=== PATIENT | male | born 1985 | race Caucasian/White ===

== ENCOUNTER 2018-06-21 12:06 | Emergency (ER) | payer MEDICARE, MEDICAID ==
[~2018-06-21] VITALS: Ht 172.7 cm; Wt 72.0 kg
[2018-06-21] MEDS ORDERED: ONDANSETRON HCL 4 MG/2 ML VIAL IVP ONE (12:45)
[2018-06-21] MEDS ORDERED: SODIUM CHLORIDE 0.9% 1,000 ML IV ONE (12:45)
[2018-06-21] MEDS ORDERED: HydrOXYzine HCL 50 MG TABLET PO ONE (13:00)
[2018-06-21 13:50] VITALS: BP 129/78
== END 2018-06-21 14:00 | disposition home or self-care (01) ==
LOC: EMS 12:08
DX: F11.188 Opioid abuse with other opioid-induced disorder (principal); R11.10 Vomiting, unspecified; F17.210 Nicotine dependence, cigarettes, uncomplicated
CPT/HCPCS: 93005; 96361; 96374; 99284; J2405; J7030